=== PATIENT | female | born 1965 | race Caucasian/White ===

== ENCOUNTER → 2016-07-23 | Outpatient (CLI) | payer OTHER ==
[2013-06-29 09:12] VITALS: BP 110/61
[~2016-07-23] MED LIST: LEVO200T PO
--- NOTE | 2016-07-23 16:58 | KCIC ---
Two views right humerus Indication: Right arm pain Findings: There is no fracture or dislocation. There is no periosteal reaction or focal bone lesion. The shoulder and elbow joints are grossly is intact. Soft tissues are unremarkable. Impression: Normal right humerus. Electronically signed by: Ishan Jackson MD (07/23/2016 4:54 PM)
== END | disposition home or self-care (01) ==
LOC: KCIC 15:51
PROVIDERS: ATTEND Clinical Nurse Specialist Family Health
DX: M79.601 Pain in right arm (principal)
CPT/HCPCS: 73060

== ENCOUNTER → 2016-09-24 | Outpatient (CLI) | payer OTHER ==
[2013-06-29 09:12] VITALS: BP 110/61
--- NOTE | 2016-09-25 11:21 | RAD ---
DATE: 09/24/2016 EXAM: DIGITAL SCREEN BILAT W/CAD HISTORY: Screening study. COMPARISON: 09/19/2015 This study was interpreted with the benefit of Computerized Aided Detection (CAD). FINDINGS: Digital MLO and CC mammograms of both breasts were obtained. The breast parenchyma is heterogeneously dense which can obscure a lesion on mammography (breast density code C). Benign-appearing calcifications are seen within both breasts. No spiculated mass is seen. No malignant appearing calcification or area of architectural distortion is noted. Since the previous examination there has been no significant interval change. IMPRESSION: BI-RADS Category 1, negative. There is no mammographic evidence of malignancy. Routine yearly screening mammography is recommended for follow-up. BI-RADS CATEGORY: 1 NEGATIVE RECOMMENDED FOLLOW-UP: 12M 12 MONTH FOLLOW-UP PQRS compliance statement: Patient information was entered into a reminder system with a target due date 09/24/2017 for the next mammogram. Mammography is a sensitive method for finding small breast cancers, but it does not detect them all and is not a substitute for careful clinical examination. A negative mammogram does not negate a clinically suspicious finding and should not result in delay in biopsying a clinically suspicious abnormality. "Our facility is accredited by the [employer] Mamm[employer]."
== END | disposition home or self-care (01) ==
LOC: MAMMO 13:41
PROVIDERS: ATTEND Obstetrics & Gynecology
DX: Z12.31 Encounter for screening mammogram for malignant neoplasm of breast (principal)
CPT/HCPCS: G0202; 77067

== ENCOUNTER → 2017-10-07 | Outpatient (CLI) | payer OTHER ==
[2013-06-29 09:12] VITALS: BP 110/61
--- NOTE | 2017-10-07 09:01 | RAD ---
DATE: 10/07/2017 EXAM: MAMMO CASTRO SCREENING BILATERAL HISTORY: Routine screening COMPARISON: 09/24/2016 This study was interpreted with the benefit of Computerized Aided Detection (CAD). The breast parenchyma is heterogeneously dense, which could reduce sensitivity of mammography. Breast parenchyma level C. FINDINGS: 2-D and 3-D tomosynthesis imaging was performed in CC and MLO projections. No new or enlarging breast densities are seen. An old breast biopsy marker is again noted laterally on the right. Minimal benign type calcifications present. No suspicious microcalcifications have developed. IMPRESSION: Stable mammograms without evidence of malignancy. BI-RADS CATEGORY: 2 BENIGN FINDING(S) RECOMMENDED FOLLOW-UP: 12M 12 MONTH FOLLOW-UP PQRS compliance statement: Patient information was entered into a reminder system with a target due date for the next mammogram. Mammography is a sensitive method for finding small breast cancers, but it does not detect them all and is not a substitute for careful clinical examination. A negative mammogram does not negate a clinically suspicious finding and should not result in delay in biopsying a clinically suspicious abnormality. "Our facility is accredited by the [employer]."
== END | disposition home or self-care (01) ==
LOC: MAMMO 08:16
PROVIDERS: ATTEND Obstetrics & Gynecology
DX: Z12.31 Encounter for screening mammogram for malignant neoplasm of breast (principal)
CPT/HCPCS: 77063; 77067

== ENCOUNTER → 2018-10-11 | Outpatient (CLI) | payer OTHER ==
[2013-06-29 09:12] VITALS: BP 110/61
--- NOTE | 2018-10-13 18:09 | RAD ---
DATE: 10/11/2018 EXAM: MAMMO CASTRO SCREENING BILATERAL HISTORY: Routine screening. Previous benign right breast biopsy in 2013. COMPARISON: 09/24/2016 and 10/07/2017 mammographic exams This study was interpreted with the benefit of Computerized Aided Detection (CAD). Breast Density: SCATTERED The breast parenchyma shows scattered fibroglandular densities. Breast parenchyma level B. FINDINGS: Benign calcifications are present. No masses or distortion. No suspicious calcifications. IMPRESSION: Stable BI-RADS CATEGORY: 1 NEGATIVE RECOMMENDED FOLLOW-UP: 12M 12 MONTH FOLLOW-UP PQRS compliance statement: Patient information was entered into a reminder system with a target due date in one year for the next mammogram. Mammography is a sensitive method for finding small breast cancers, but it does not detect them all and is not a substitute for careful clinical examination. A negative mammogram does not negate a clinically suspicious finding and should not result in delay in biopsying a clinically suspicious abnormality. "Our facility is accredited by the [employer]."
== END | disposition home or self-care (01) ==
LOC: MAMMO 12:51
PROVIDERS: ATTEND Obstetrics & Gynecology
DX: Z12.31 Encounter for screening mammogram for malignant neoplasm of breast (principal); N64.89 Other specified disorders of breast
CPT/HCPCS: 77063; 77067

== ENCOUNTER → 2019-10-25 | Outpatient (CLI) | payer OTHER ==
[2013-06-29 09:12] VITALS: BP 110/61
--- NOTE | 2019-10-25 12:37 | RAD ---
DATE: 10/25/2019 9:10 AM EXAM: MAMMO CASTRO SCREENING BILATERAL HISTORY: Screening COMPARISON: 09/24/2016, 09/17/2017, 10/11/2018 Bilateral CC and MLO views of the breasts were performed. Bilateral breast tomosynthesis was performed in CC and MLO projections. This study was interpreted with the benefit of Computerized Aided Detection (CAD). FINDINGS: Breast Density: SCATTERED The breast parenchyma shows scattered fibroglandular densities. Breast parenchyma level B No suspicious masses, microcalcifications or architectural distortion is present to suggest malignancy in either breast. The visualized axillae are unremarkable. IMPRESSION: No mammographic evidence of malignancy. BI-RADS CATEGORY: 1 NEGATIVE RECOMMENDED FOLLOW-UP: 12M 12 MONTH FOLLOW-UP Annual screening mammography is recommended, unless clinically indicated sooner based on symptoms or change in physical exam. PQRS compliance statement: Patient information was entered into a reminder system with a target due date for the next mammogram. Mammography is a sensitive method for finding small breast cancers, but it does not detect them all and is not a substitute for careful clinical examination. A negative mammogram does not negate a clinically suspicious finding and should not result in delay in biopsying a clinically suspicious abnormality. "Our facility is accredited by the [employer]ammography [employer]."
== END | disposition home or self-care (01) ==
LOC: MAMMO 08:48
PROVIDERS: ATTEND Obstetrics & Gynecology
DX: Z12.31 Encounter for screening mammogram for malignant neoplasm of breast (principal)
CPT/HCPCS: 77063; 77067

== ENCOUNTER → 2020-11-05 | Outpatient (CLI) | payer OTHER ==
[2013-06-29 09:12] VITALS: BP 110/61
--- NOTE | 2020-11-05 15:12 | RAD ---
MG BILAT SCREEN+CASTRO 11/05/2020 7:59 AM INDICATION: Asymptomatic screening mammogram. COMPARISON: 10/25/2019, 10/11/2018 TECHNIQUE: 3D tomosynthesis was performed in CC and MLO projections. 2D views were obtained from the 3D data. CAD was utilized as needed. FINDINGS: Breast density: Category C: The breats are heterogeneously dense, which may obscure small masses. Right breast: There are no suspicious microcalcifications, masses or areas of architectural distortio n. Biopsy clip identified in the upper outer right breast at posterior depth at site of prior benign breast biopsy. Left breast: There are no suspicious microcalcifications, masses or areas of architectural distortion . Bilateral mammogram is compared to prior examinations appears unchanged. IMPRESSION: Negative bilateral mammogram. BI-RADS category: 1; Negative Recommendations: Recommend annual screening mammography in one year. Electronically signed by: Radha Samson MD (11/05/2020 3:10 PM) [id number]
== END ==
LOC: MAMMO 08:10
PROVIDERS: ATTEND Obstetrics & Gynecology
DX: Z12.31 Encounter for screening mammogram for malignant neoplasm of breast (principal)
CPT/HCPCS: 77063; 77067